=== PATIENT | male | born 1960 | race Caucasian/White ===

== ENCOUNTER 2018-02-21 13:38 | Observation (INO) ==
[2018-02-21 13:43] VITALS: BMI 27.4
[2018-02-21 14:31] LABS: BILIRUBIN,URINE NEGATIVE (NEGATIVE); BLOOD/HEMOGLOBIN,URINE 3+ (NEGATIVE); GLUCOSE, URINE NEGATIVE (NEGATIVE); KETONES,URINE NEGATIVE (NEGATIVE); LEUKOCYTE ESTERASE ,URINE 3+ (NEGATIVE); NITRITES,URINE NEGATIVE (NEGATIVE); PROTEIN,URINE 1+ (NEGATIVE); UROBILINOGEN,URINE NORMAL (NORMAL)
[2018-02-21 14:39] LABS: APPEARANCE,URINE CLEAR (CLEAR); COLOR,URINE YELLOW (YELLOW)
[2018-02-21 14:42] LABS: AMORPHOUS SEDIMENT,UR 1+ /HPF (NEGATIVE); BACTERIA,URINE TRACE /HPF (NEGATIVE); HYALINE CASTS, URINE RARE /LPF (NEGATIVE); RBC,URINE 0-2 /HPF (NONE SEEN); SQUAMOUS EPITHELIAL CELL,UR RARE /HPF (NEGATIVE)
[2018-02-21] MEDS ORDERED: TORADOL 30 MG VIAL IM ONE (14:58)
[2018-02-21] MEDS ORDERED: TORADOL 30 MG VIAL ONE (15:05)
--- NOTE | 2018-02-21 16:06 | CT ---
HISTORY: Right flank pain. Hematuria. Study: CT abdomen and pelvis without contrast. Dose reduction techniques including Automated Exposure Control (AEC) and adjustment of mA and kV were utilized. Comparison: None. Technique: Multiple axial images of the abdomen and pelvis were obtained from the lung bases to the pubic symphysis without the administration of IV contrast. Findings: There is mild elevation of left hemidiaphragm with minimal left basilar subsegmental atelectasis. The liver, gallbladder, pancreas, spleen, adrenal glands and right kidney are unremarkable in their noncontrast CT appearance. 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 Additional calculi are present throughout the markedly dilated left renal pelvis. No significant renal cortex remains. There is diffuse thickening of the wall of the incompletely distended urinary bladder. The appendix measures up to 8 mm in diameter and demonstrates mild wall thickening and minimal subjacent stranding which can be seen in very early acute appendicitis. The colon is grossly unremarkable. There is no small bowel dilatation. There is no intraperitoneal free air or free fluid. The abdominal aorta is nonaneurysmal. The bony structures are grossly intact. IMPRESSION: Questionable early acute appendicitis which should be correlated for clinically. Diffuse nonspecific thickening of the wall of the incompletely distended urinary bladder which can be seen in the setting of cystitis. 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 No significant left renal cortex remains. Additional nonobstructing nephrolithiasis is present on the left as well. Urological referral may be of benefit. Reported By:
[2018-02-21] MEDS ORDERED: NS 1000 ML 1,000 ML ONE (16:13)
[2018-02-21] MEDS: NS 1000 ML 1,000 ML IV SCH ×2 (16:24→21:03)
[2018-02-21 16:34] LABS: BASOPHILS # (AUTO) 0.1 X10^3/uL (0.0-0.1); BASOPHILS % (AUTO) 1.2 % (0.2-1.0); EOSINOPHILS # (AUTO) 0.2 x10^3/uL (0.0-0.2); EOSINOPHILS % (AUTO) 2.5 % (0.9-2.9); HEMOGLOBIN 15.8 g/dL (13.5-18.0); LYMPHOCYTES # (AUTO) 1.7 X10^3/uL (1.3-2.9); LYMPHOCYTES % (AUTO) 22.1 % (21.0-51.0); MEAN CORPUSCULAR HEMOGLOBIN 29.7 pg (27.0-34.0); MEAN CORPUSCULAR HGB CONC 34.3 g/dL (33.0-35.0); MEAN CORPUSCULAR VOLUME 86.6 fL (80.0-100.0); MEAN PLATELET VOLUME 7.9 fL (7.4-11.0); MONOCYTES # (AUTO) 0.5 x10^3/uL (0.3-0.8); MONOCYTES % (AUTO) 6.7 % (0.0-13.0); NEUTROPHILS # (AUTO) 5.1 x10^3/uL (2.2-4.8); NEUTROPHILS % (AUTO) 67.5 % (42.0-75.0); PLATELET COUNT 289 X10^3/uL (150.0-450.0); RED BLOOD COUNT 5.31 X10^6/uL (4.7-6.0); RED CELL DISTRIBUTION WIDTH 14.3 % (11.6-16.5); WHITE BLOOD COUNT 7.5 X10^3/uL (3.6-10.0)
[2018-02-21 16:48] LABS: ALANINE AMINOTRANSFERASE 21 Units/L (12-78); ALBUMIN 3.8 g/dL (3.4-5.0); ALKALINE PHOSPHATASE 84 Units/L (46-116); ASPARTATE AMINO TRANSFERASE 20 Units/L (15-37); BLOOD UREA NITROGEN 18 mg/dL (7-18); CALCIUM 8.8 mg/dL (8.5-10.1); CARBON DIOXIDE 27.8 mmol/L (21-32); CHLORIDE 103 mmol/L (98-107); CREATININE 1.08 mg/dL (0.70-1.30); SODIUM 139 mmol/L (136-145); TOTAL PROTEIN 7.7 g/dL (6.4-8.2); eGFR NON BLACK RACES > 60 (>60)
--- NOTE | 2018-02-21 17:25 | RAD ---
Portable chest Clinical indication: Right flank pain, preop Findings: No pulmonary infiltrates are identified. The pleural spaces are clear. The heart size is normal for portable film. There is no mediastinal widening. Impression: No acute radiographic abnormalities of the chest. Reported By:
[2018-02-21] MEDS: ROCEPHIN VIAL 1 GRAM IVP SCH (19:12)
--- NOTE | 2018-02-21 22:22 | DR.EXTPAIN ---
HPI Time seen Time Seen by Provider: 02/21/18 14:57 PCP Primary Care Physician: dominique Complaint/Symptoms Chief Complaint:: pt stated he has been having right flank pain for several days but the pain got worse and has not went away Source History Provided: Patient Mode of arrival Mode of Arrival: Ambulatory Timing Onset of Chief Complaint: 02/17/18 PMH PMH Past Medical History: No Past Surgical History: Yes Past Surgical History Comment: hernia Family History History of Family Medical Conditions: No Social History Does patient currently use any type of tobacco product: No Have you used tobacco products in the last 12 months: No Type of Tobacco Use: None Does any household member use tobacco: No Alcohol Use: None Do you use any recreational Drugs:: No Lives With: Family Lives Where: Home infectious screening In the last 2 months have you had wt loss of >10#?: NO Have you had fever, night sweats or hemotysis?: No Have you traveled outside the country in the last 6 months?: No Isolation: Standard PE Vital Signs Vitals: Temperature 97.8 F Pulse Rate [Left Brachial] 72 Pulse Rate 71 Respiratory Rate 20 Blood Pressure [Left Arm] 148/81 Blood Pressure 161/84 O2 Sat by Pulse Oximetry 96 General Limitations: No Limitations General Appearance: Alert and In No Apparent Distress Head Head Exam: Normal Inspection, Atraumatic and Normocephalic Eyes Eye exam: Normal Appearance, PERRL and EOMI ENT ENT Exam: Normal Exam and Normal Oropharynx Neck Neck Exam: Normal Inspection and Full ROM Chest Chest Inspection: Normal Inspection and Symmetric Chest Wall Rise Respiratory Respiratory Exam: Normal Lung Sounds Bilat Respiratory Exam: Bilateral: Clear to Auscultation Cardiovascular Cardiovascular Exam: Regular Rate and Normal Rhythm Abdominal Exam Abdominal Exam: Normal Inspection, Normal Bowel Sounds and Soft (RLQ pain) Abdominal Tenderness: RLQ Extremities Extremities Exam: Normal Inspection and Full ROM Upper Extremities Shoulder Exam: Normal Inspection and Full ROM Arm Exam: Normal Inspection and Full ROM Elbow Exam: Normal Inspection and Full ROM Forearm Exam: Normal Inspection Neuromotor Exam: Normal Exam and Wrist Extension Lower Extremities Upper Leg Exam: Normal Inspection and Full ROM ROR Labs Reviewed Laboratory Results Reviewed?: Yes Result Diagrams: 02/21/18 16:20 02/21/18 16:20 Laboratory: WBC 7.5 X10^3/uL (3.6-10.0) 02/21/18 16:20 RBC 5.31 X10^6/uL (4.7-6.0) 02/21/18 16:20 Hgb 15.8 g/dL (13.5-18.0) 02/21/18 16:20 Hct 46.0 % (42.0-54.0) 02/21/18 16:20 MCV 86.6 fL (80.0-100.0) 02/21/18 16:20 MCH 29.7 pg (27.0-34.0) 02/21/18 16:20 MCHC 34.3 g/dL (33.0-35.0) 02/21/18 16:20 RDW 14.3 % (11.6-16.5) 02/21/18 16:20 Plt Count 289 X10^3/uL (150.0-450.0) 02/21/18 16:20 MPV 7.9 fL (7.4-11.0) 02/21/18 16:20 Neut % (Auto) 67.5 % (42.0-75.0) 02/21/18 16:20 Lymph % (Auto) 22.1 % (21.0-51.0) 02/21/18 16:20 [place] % (Auto) 6.7 % (0.0-13.0) 02/21/18 16:20 Eos % (Auto) 2.5 % (0.9-2.9) 02/21/18 16:20 Baso % (Auto) 1.2 % (0.2-1.0) H 02/21/18 16:20 Neut # (Auto) 5.1 x10^3/uL (2.2-4.8) H 02/21/18 16:20 Lymph # (Auto) 1.7 X10^3/uL (1.3-2.9) 02/21/18 16:20 [place] # (Auto) 0.5 x10^3/uL (0.3-0.8) 02/21/18 16:20 Eos # (Auto) 0.2 x10^3/uL (0.0-0.2) 02/21/18 16:20 Baso # (Auto) 0.1 X10^3/uL (0.0-0.1) 02/21/18 16:20 Absolute Nucleated RBC 0.1 /100WBC 02/21/18 16:20 Sodium 139 mmol/L (136-145) 02/21/18 16:20 Corrected Sodium TNP 02/21/18 16:20 Potassium 4.5 mmol/L (3.5-5.1) 02/21/18 16:20 Chloride 103 mmol/L (98-107) 02/21/18 16:20 Carbon Dioxide 27.8 mmol/L (21-32) 02/21/18 16:20 BUN 18 mg/dL (7-18) 02/21/18 16:20 Creatinine 1.08 mg/dL (0.70-1.30) 02/21/18 16:20 Est GFR (MDRD) Af Amer > 60 (>60) 02/21/18 16:20 Est GFR (MDRD) Non-Af > 60 (>60) 02/21/18 16:20 Glucose 98 mg/dL (65-99) 02/21/18 16:20 Calcium 8.8 mg/dL (8.5-10.1) 02/21/18 16:20 Corrected Calcium TNP 02/21/18 16:20 Total Bilirubin 0.50 mg/dL (0.2-1.0) 02/21/18 16:20 AST 20 Units/L (15-37) 02/21/18 16:20 ALT 21 Units/L (12-78) 02/21/18 16:20 Alkaline Phosphatase 84 Units/L (46-116) 02/21/18 16:20 C-Reactive Protein 1.30 mg/L (0-3.0) 02/21/18 16:20 Total Protein 7.7 g/dL (6.4-8.2) 02/21/18 16:20 Albumin 3.8 g/dL (3.4-5.0) 02/21/18 16:20 Globulin 3.9 g/dL (2.5-4.5) 02/21/18 16:20 Albumin/Globulin Ratio 1.0 Ratio (1.1-2.1) L 02/21/18 16:20 Specimen Type Random urine 02/21/18 14:17 Urine Color Yellow (YELLOW) 02/21/18 14:17 Urine Appearance Clear (CLEAR) 02/21/18 14:17 Urine pH 6.0 (5.0 - 8.0) 02/21/18 14:17 Ur Specific [place] 1.010 (1.000-1.030) 02/21/18 14:17 Urine Protein 1+ (NEGATIVE) 02/21/18 14:17 Urine Glucose (UA) Negative (NEGATIVE) 02/21/18 14:17 Urine Ketones Negative (NEGATIVE) 02/21/18 14:17 Urine Occult Blood 3+ (NEGATIVE) 02/21/18 14:17 Urine Nitrite Negative (NEGATIVE) 02/21/18 14:17 Urine Bilirubin Negative (NEGATIVE) 02/21/18 14:17 Urine Urobilinogen Normal (NORMAL) 02/21/18 14:17 Ur Leukocyte Esterase 3+ (NEGATIVE) 02/21/18 14:17 Urine RBC 0-2 /HPF (NONE SEEN) 02/21/18 14:17 Urine WBC 30-50 /HPF (NONE SEEN) 02/21/18 14:17 Ur Squamous Epith Cells Rare /HPF (NEGATIVE) 02/21/18 14:17 Amorphous Sediment 1+ /HPF (NEGATIVE) 02/21/18 14:17 Urine Bacteria Trace /HPF (NEGATIVE) 02/21/18 14:17 Hyaline Casts Rare /LPF (NEGATIVE) 02/21/18 14:17 Ur Culture Indicated? No/not indicated 02/21/18 14:17 Other Results Comments: CT ABD/PEL w/o:There is mild elevation of left hemidiaphragm with minimal left basilar subsegmental atelectasis. The liver, gallbladder, pancreas,speleen, adrenal glands and right kidney are unremarkable in their oocontrast CT appearance. 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 Additional calculi are present throughout the markedly dilated left renal pelvis. No significant renal cortex remains. There is diffuse thickening of the wall of the incompletely distended urinary bladder. The appendix measures up to 8mm in diameter and demonstreates mild wall thickening and minimal subjacent stranding which can be seen in very early acute appendicitis. The colon is grossly unremarkable. There is no small bowel dil is no intra- peritoneal free air or free fluid. The abdominal aorta is non-aneurysmal. The bony structures are grossly intact. Impression: Questionable early acute appendicitis which should be correlated for clinically. Diffuse non-specific thickening of the wall of the incompletely distended urinary bladder which can be seen in the setting of cystitis. 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 XRAY XRAY Interpreted by: Radiologist XRAY Findings: Chest: No acute radiographic abnormalitiers of the chest Diagnosis Discharge Problem: Obstructive defect of renal pelvis, Obstruction of left ureteropelvic junction (UPJ) due to stone Acute appendicitis Qualifiers: Acute appendicitis type: unspecified acute appendicitis type Qualified Code(s): K35.80 - Unspecified acute appendicitis
[2018-02-22] MEDS: NS 1000 ML 1,000 ML IV SCH ×3 (02:17→09:24)
[2018-02-22 05:24] LABS: BASOPHILS # (AUTO) 0.1 X10^3/uL (0.0-0.1); BASOPHILS % (AUTO) 0.9 % (0.2-1.0); EOSINOPHILS # (AUTO) 0.2 x10^3/uL (0.0-0.2); EOSINOPHILS % (AUTO) 3.3 % (0.9-2.9); HEMATOCRIT 41.5 % (42.0-54.0); HEMOGLOBIN 14.1 g/dL (13.5-18.0); LYMPHOCYTES # (AUTO) 2.1 X10^3/uL (1.3-2.9); LYMPHOCYTES % (AUTO) 32.3 % (21.0-51.0); MEAN CORPUSCULAR HEMOGLOBIN 29.9 pg (27.0-34.0); MEAN CORPUSCULAR VOLUME 87.9 fL (80.0-100.0); MEAN PLATELET VOLUME 8.1 fL (7.4-11.0); MONOCYTES # (AUTO) 0.6 x10^3/uL (0.3-0.8); MONOCYTES % (AUTO) 9.9 % (0.0-13.0); NEUTROPHILS # (AUTO) 3.4 x10^3/uL (2.2-4.8); NEUTROPHILS % (AUTO) 53.6 % (42.0-75.0); PLATELET COUNT 244 X10^3/uL (150.0-450.0); RED BLOOD COUNT 4.72 X10^6/uL (4.7-6.0); RED CELL DISTRIBUTION WIDTH 14.3 % (11.6-16.5); WHITE BLOOD COUNT 6.4 X10^3/uL (3.6-10.0)
[2018-02-22 05:37] LABS: ALANINE AMINOTRANSFERASE 16 Units/L (12-78); ALBUMIN 3.1 g/dL (3.4-5.0); ALKALINE PHOSPHATASE 68 Units/L (46-116); ASPARTATE AMINO TRANSFERASE 17 Units/L (15-37); BLOOD UREA NITROGEN 14 mg/dL (7-18); CALCIUM 7.7 mg/dL (8.5-10.1); CHLORIDE 106 mmol/L (98-107); COR CA(FOR HYPOALB) 8.4 mg/dL (8.5-10.1); CREATININE 1.12 mg/dL (0.70-1.30); SODIUM 140 mmol/L (136-145); TOTAL PROTEIN 6.4 g/dL (6.4-8.2); eGFR NON BLACK RACES > 60 (>60)
[2018-02-22] MEDS: ROCEPHIN VIAL 1 GRAM IVP SCH (08:33)
[2018-02-22] MEDS ORDERED: FENTANYL INJ 100 mcg ONE (09:43)
[2018-02-22] MEDS ORDERED: LR 1000 ML IV 1,000 ML IV ONE (10:27)
[2018-02-22] MEDS ORDERED: FLAGYL IV PREMIX 500 MG BAG 500 MG/100 ML BAG IV ONE (10:34)
[2018-02-22] MEDS ORDERED: BACTROBAN TOPICAL OINT ONE ×2 (11:15→11:23)
[2018-02-22] MEDS ORDERED: NARCAN INJ ONE (11:33)
[2018-02-22] MEDS ORDERED: DILAUDID INJ IVP PRN ×2 (11:36→11:40)
[2018-02-22] MEDS ORDERED: PHENERGAN INJ 25 MG IVP PRN (11:40)
[2018-02-22] MEDS ORDERED: REGLAN INJ 10 MG VIAL IVP PRN (11:40)
[2018-02-22] MEDS ORDERED: BENADRYL INJ 50 MG VIAL IVP PRN (11:40)
[2018-02-22] MEDS ORDERED: ZOFRAN INJ 4 MG VIAL IVP PRN (11:40)
--- NOTE | 2018-02-22 12:40 | OR.GENERIC ---
Post-Op Note Generic - Post-Op Note Operative Report: diagnostic laparoscopy and appendectomy was done .. finding acute appendecitis . normal terminal ileum , colon , stomach liver and GB EBL 10 cc . to keep NPO .. may have water only today, and full liquid in am
[2018-02-22] MEDS: D5 1/2 NS 1000 ML 1,000 ML IV SCH ×2 (13:45→20:06)
[2018-02-22] MEDS: MORPHINE SULFATE INJ 4 MG IVP PRN ×3 (14:25→22:25)
[2018-02-22] MEDS: FLAGYL IV PREMIX 500 MG BAG 500 MG/100 ML BAG IV SCH ×2 (14:27→20:05)
[2018-02-22] MEDS ORDERED: ZOFRAN INJ 4 MG VIAL ONE (15:43)
[2018-02-22] MEDS ORDERED: NORCURON INJ 10 MG VIAL ONE (15:43)
[2018-02-22] MEDS ORDERED: DIPRIVAN VIAL ONE (15:43)
[2018-02-22] MEDS ORDERED: ULTANE GAS IN ONE (15:43)
[2018-02-22] MEDS ORDERED: NEOSTIGMINE INJ ONE (15:43)
[2018-02-22] MEDS ORDERED: VERSED ONE (15:43)
[2018-02-22] MEDS ORDERED: ROBINUL ONE (15:43)
[2018-02-22] MEDS ORDERED: QUELICIN (OR ANECTINE) ONE (15:43)
[2018-02-22] MEDS ORDERED: EPHEDRINE SULFATE INJ ONE (15:43)
[2018-02-22] MEDS ORDERED: TORADOL 30 MG VIAL ONE (15:43)
[2018-02-23] MEDS: FLAGYL IV PREMIX 500 MG BAG 500 MG/100 ML BAG IV SCH ×2 (02:43→08:52)
[2018-02-23] MEDS: D5 1/2 NS 1000 ML 1,000 ML IV SCH (03:54)
[2018-02-23 05:17] LABS: BASOPHILS % (AUTO) 0.5 % (0.2-1.0); EOSINOPHILS # (AUTO) 0.2 x10^3/uL (0.0-0.2); EOSINOPHILS % (AUTO) 2.1 % (0.9-2.9); HEMATOCRIT 38.1 % (42.0-54.0); HEMOGLOBIN 12.8 g/dL (13.5-18.0); LYMPHOCYTES # (AUTO) 1.4 X10^3/uL (1.3-2.9); LYMPHOCYTES % (AUTO) 17.1 % (21.0-51.0); MEAN CORPUSCULAR HEMOGLOBIN 29.5 pg (27.0-34.0); MEAN CORPUSCULAR HGB CONC 33.7 g/dL (33.0-35.0); MEAN CORPUSCULAR VOLUME 87.3 fL (80.0-100.0); MONOCYTES # (AUTO) 0.7 x10^3/uL (0.3-0.8); NEUTROPHILS # (AUTO) 5.6 x10^3/uL (2.2-4.8); NEUTROPHILS % (AUTO) 71.3 % (42.0-75.0); PLATELET COUNT 227 X10^3/uL (150.0-450.0); RED BLOOD COUNT 4.36 X10^6/uL (4.7-6.0); RED CELL DISTRIBUTION WIDTH 14.2 % (11.6-16.5); WHITE BLOOD COUNT 7.9 X10^3/uL (3.6-10.0)
[2018-02-23 05:35] LABS: ALANINE AMINOTRANSFERASE 17 Units/L (12-78); ALBUMIN 2.9 g/dL (3.4-5.0); ALKALINE PHOSPHATASE 68 Units/L (46-116); ASPARTATE AMINO TRANSFERASE 15 Units/L (15-37); BLOOD UREA NITROGEN 9 mg/dL (7-18); CALCIUM 7.3 mg/dL (8.5-10.1); CARBON DIOXIDE 26.2 mmol/L (21-32); CHLORIDE 106 mmol/L (98-107); COR CA(FOR HYPOALB) 8.2 mg/dL (8.5-10.1); COR NA(FOR HYPERGLY) 140 mmol/L (136-145); CREATININE 1.01 mg/dL (0.70-1.30); SODIUM 140 mmol/L (136-145); TOTAL PROTEIN 6.1 g/dL (6.4-8.2); eGFR NON BLACK RACES > 60 (>60)
[2018-02-23] MEDS: ROCEPHIN VIAL 1 GRAM IVP SCH (08:50)
[2018-02-23 09:42] VITALS: BP 153/87
== END 2018-02-23 11:00 | disposition home or self-care (01) ==
LOC: MED/SURG 13:38 → ER 13:38 → MED/SURG 18:23
PROVIDERS: ADMIT Internal Medicine; ATTEND Obstetrics & Gynecology Obstetrics
PROC: APPYLAP (ICD-10-PCS; 2018-02-22 10:15)
DX: N20.2 Calculus of kidney with calculus of ureter; R10.84 Generalized abdominal pain; K35.80 Unspecified acute appendicitis; N28.89 Other specified disorders of kidney and ureter
CPT/HCPCS: 36415; 71010; 71045; 74176; 80053; 81001; 83735; 85025; 86140; 93005; 93010; 96365; 96367; 96372; 96374; 99284; A4216; A4222; S0030; G0378; J0330; J0696; J1885; J2250; J2270; J2310; J2405; J2704; J2710; J3010; J3490; J7030; J7120; S5010